=== PATIENT | male | born 1990 | race Caucasian/White ===

== ENCOUNTER 2016-12-27 17:50 | Inpatient (IN) | payer OTHER ==
[~2016-12-27] VITALS: Ht 177.8 cm; Wt 77.8 kg
[~2016-12-27 17:50] MED LIST: CHOL100027 PO; FLUO20CA35 PO; FLUO40CA8 PO; QUET150T PO
[2016-12-27] MEDS ORDERED: BUSP15TA70 PO (18:23)
[2016-12-27] MEDS ORDERED: FLUO40CA8 PO (18:23)
[2016-12-27 18:38] LABS: BASO % 0.2 %; BASO ABS # 0.03 K/uL (0-0.2); COMPLETE YES; EOS % 0.8 %; HEMATOCRIT 52.2 % (42-52); IG% 0.9 %; LYMPH % 11.4 %; LYMPH ABS # 1.44 K/uL (1.2-3.4); MEAN CELL VOLUME 83.9 fL (80-100); MEAN CORPUSCULAR HEMOGLOBIN 27.8 pg (25-34); MEAN CORPUSCULAR HGB CONC 33.1 g/dl (32-36); MEAN PLATELET VOLUME 9.6 fL (7.4-10.4); MONO % 7.3 %; NEUT % 79.4 %; PLATELET COUNT 241 K/uL (130-400); RED BLOOD COUNT 6.22 M/uL (4.7-6.1); WHITE BLOOD COUNT 12.68 K/uL (4.8-10.8)
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
[2016-12-27 18:52] LABS: URINE APPEARANCE CLEAR (CLEAR); URINE BILIRUBIN NEG (NEG); URINE COLOR DK YELLOW; URINE EPITHELIAL CELL AUTO 20-30 /lpf (0-5); URINE NITRITE NEG (NEG); URINE PH 6.5 (4.5-7.5); UROBILINOGEN NEG (NEG)
[2016-12-27 18:54] LABS: MANUAL MICROSCOPIC REQUIRED? NO; REVIEW REQ? NO
[2016-12-27 19:01] LABS: BUN/CREATININE RATIO 11.1 (10-20); CALCIUM 9.2 mg/dl (8.5-10.1); CREATININE 1.2 mg/dl (0.60-1.40); POTASSIUM 3.8 mmol/L (3.5-5.1)
[2016-12-27 19:11] LABS: THYROID STIMULATING HORMONE 1.04 uIu/ml (0.300-4.500)
[2016-12-27 19:31] LABS: BENZODIAZEPINE, URINE NEG (NEG); COCAINE,URINE NEG (NEG); PHENCYCLIDINE, URINE NEG (NEG)
[2016-12-27 20:10] VITALS: O2SAT 93
[2016-12-27] MEDS ORDERED: NURSING VERBAL MED ORDER ONE (20:30)
[2016-12-27 20:45] VITALS: BP 130/83; PULSE 78; TEMP 36.8; Ht 177.8 cm; Wt 77.8 kg
[2016-12-27] MEDS ORDERED: SODIUM CHLORIDE 0.65% NA SOLN 45 ML (OCEAN) PRN (21:45)
[2016-12-27] MEDS ORDERED: ALUMINUM/MAGNESIUM SUSP 30 ML UDC PO PRN (21:45)
[2016-12-27] MEDS ORDERED: BISMUTH SUBSALICYLATE PER ML OMNICELL CHARGE PO PRN (21:45)
[2016-12-27] MEDS ORDERED: hydrOXYzine HCL 25 MG TAB PO PRN ×2 (21:45)
[2016-12-27] MEDS ORDERED: ACETAMINOPHEN 325 MG TAB PO PRN (21:45)
[2016-12-27] MEDS ORDERED: MAGNESIUM HYDROXIDE SUSP 30 ML UDC PO PRN (21:45)
[2016-12-27] MEDS ORDERED: BusPIRone 15 MG TAB PO SCH (22:00)
[2016-12-27] MEDS ORDERED: FLUOXETINE HCL 20 MG CAP PO SCH (22:00)
[2016-12-28 06:45] VITALS: BP_SYST 105; BP_SYST 128; BP_DIAS 70; BP_DIAS 91; PULSE 79; PULSE 82; TEMP 36.5
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
[2016-12-28] MEDS ORDERED: BusPIRone 15 MG TAB PO ONE (13:02)
[2016-12-28] MEDS: BusPIRone 15 MG TAB PO SCH (21:09)
[2016-12-28] MEDS: ESCITALOPRAM OXALATE 10 MG TAB PO SCH (21:09)
[2016-12-29 06:47] VITALS: BP_SYST 120; BP_SYST 123; BP_DIAS 83; BP_DIAS 88; PULSE 75; PULSE 83; TEMP 36.4
[2016-12-29] MEDS: BusPIRone 15 MG TAB PO SCH ×3 (08:56→21:24)
--- NOTE | 2016-12-29 11:42 | Psychiatric Progress Notes ---
Progress Note Date of Service Dec 29, 2016. 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 Chief Complaint "about the same". Subjective Patient was seen & assessed interval progress reviewed with nursing. Patient continues to be suicidal with a plan to cut his throat if he were not in the hospital. He relates family communication problems and blames mom's depression as the most significant factor. Dad works as a supervisor type disk quality control at [employer] and is gone most of the time and when dad is at home he is "emotionally unavailable and detached." Occasionally dad will say to patient "what is your plan for your life" but otherwise a little interaction. Patient reports that therapist, Dayron Stallings, has suggested that patient "put himself out there" but patient admits that he hasn't attempted to become involved in anything. He does have a peg driver's license and will occasionally drive to [employer] if he needs something. He denies anxiety about these types of activities but becomes anxious in social situations. In November, patient and mother travelled to [place] for his cousin's college graduation. Patient did all the driving and did not feel anxious and relates that he "did okay" with family interactions. He has been persistently depressed since he was in elementary school because he was made fun of by his peers for his speech impediment and not being athletic. He spends his days at home lying in bed, playing video games for about 1 hour/ day. He drives himself to doctor and therapy appointments. He is willing to have a family meeting "depending on who moderates" the meeting. He says that during the family meeting with his mother during his second of three hospitalizations here in 2011 his mother's feelings were hurt and he was discharged right after the meeting. Mom and patient drove home in silence. Patient not interest in [facility] as he was uncomfortable there in the past and his sister goes there. Review of Systems negative Sleep Information Total Hours of Sleep: 7.25 Meal Information Percent of Breakfast Consumed: 100 Percent of Lunch Consumed: 100 Percent of Dinner Consumed: 100 Mental Status Exam During interview pt is: alert and oriented, cooperative Appearance: appropriately dressed, appropriately groomed, other (appears older than stated age, wearing glasses) Eye contact is: fair Motor behavior is: steady gait & station, psychomotor agitation (jiggling legs) Speech: other (slowed, monotone) Affect: depressed, anxious, constricted Mood is: depressed, anxious Thought process: goal directed Thought content: reality based without delusions Suicidal thought are: present, Plan: present, Intent: denied Homicidal thoughts are: denied Hallucinations: denies auditory, denies visual Cognition: memory grossly intact, attention grossly intact, language grossly intact Intelligence estimated to be: average Insight: impaired Judgement: impaired Impression 26-year-old single white male who lives with his parents in [place], has a history of severe recurrent depression, generalized anxiety disorder, and 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 He has remained severely depressed for years, has not been able to sustain employment or live independently since graduating from college 6 years ago, and has been resistant to recommendations for increased outpatient supports and structure, although he is following with a psychiatrist and therapist. He has had several trials of augmenting medications for mood, but has not tried any other SSRIs besides fluoxetine, and has never been on an SNRI. He would benefit from a trial of a different antidepressant to target mood and anxiety, increased support and structure at home, family meeting with parents, and a robust safety plan. He requires inpatient treatment due to the high risk for suicide. Patient continues to require inpatient treatment due to suicidal thoughts with plan and can not contract for safety outside the hospital. Plan (1) Severe recurrent major depression without psychotic features - Chronic severe depression with acute worsening of mood in the context of mother's depression and difficult relationships with family. Discussed options for medication, including a trial of a different augmenting agent, switching to a different SSRI, or a trial of an SNRI such as venlafaxine XR. As there is some concern that fluoxetine is causing tinnitus, he would like to try switching to a different antidepressant. We discussed a trial of escitalopram, reviewed the risks, benefits, and side effects, and provided the patient with and up to date handout about the medication. We will stop fluoxetine which will self taper given its long half-life, and start escitalopram 10 mg daily at bedtime tonight, titrating as tolerated. - We also discussed the importance of increasing his supports and structure at home, engaging in activities outside of the home, and working on his relationship with his parents. He will need a family meeting with them prior to discharge. - Diane with outpatient providers. He does not feel he needs case management or psych rehabilitation, but may need a higher level of care, he is not doing well with his current regimen. 12/29 - Continue Lexpro 10 mg no side effects reported. Prozac 80 mg was discontinued last dose 12/28. (2) Anxiety - Trial of escitalopram as above. - Continue buspirone 15 mg 3 times a day. Patient instructed on the importance of taking the medication throughout the day for best effect. - Work on behavioral techniques for managing anxiety. (3) Suicidal ideations - Every 15 minute checks for safety. - Encourage group attendance and participation. - Work on discharge safety plan. Involve parents. High risk for suicide due to race, single, sex, unemployed, poor supports, chronic depression/anxiety/ personality disorder, multiple previous suicide attempts and hospitalizations, history of a suicide attempt without telling anyone her seeking treatment, and chronic SI with a specific plan and acts of furtherance on multiple occasions. Would benefit from robust safety plan to include no access to weapons including knives, and involving parents and outpatient providers so all are aware of the plan. Discharge / Aftercare Planning Primary Care Physician: Name: Dr Escobar Psychiatrist: Name: Dr Marcelino Date of Appointment: Feb 10, 2017 Time of Appointment: 9:00am Therapist: Name: Dayron Stallings LPC Date of Appointment: Jan 03, 2017 Time of Appointment: 4:00pm Critical Care Nurse Practitioner: Name: None Visit Code E&M Code: 07760 Inventory Assets Strengths: Supportive family, has housing, has outpatient providers Risk Factors Assessment Male: Yes : Yes /single/: Yes Higher / Fall in social status: No Health problems: Yes Mental Health Diagnoses: Yes Substance use disorders: No Previous attempt: Yes Previous attempt; planned: Yes Previous attempt; didn't tell: Yes Family history of suicide: No Previous psychiatric stay: Yes Hopelessness: Yes Smoker: No Protective Factors Assessment Hindu beliefs: Yes : No Responsible for young children: No Employed: No Stable relationships: No Supportive family: Yes Good rapport with provider: No Data Vital Signs Last 24 Hrs: Date Time Temp Pulse Resp B/P (MAP) Pulse Ox O2 Delivery O2 Flow Rate FiO2 12/29/16 06:47 36.4 75 16 120/83 83 123/88 Meds Administered Last 24 Hrs: Current Inpatient Medications Medications (Trade) Dose Ordered Sig/Hector Route Start Time Stop Time Status Last Admin Dose Admin Acetaminophen (Tylenol Tab) 650 mg Q4H PRN PO 12/27/16 21:45 01/26/17 21:44 Al Hydroxide/Mg Hydroxide (Maalox Susp) 30 ml Q4H PRN PO 12/27/16 21:45 01/26/17 21:44 Bismuth Subsalicylate (Kaopectate Liqd) 15 ml DAILY PRN PO 12/27/16 21:45 01/26/17 21:44 Magnesium Hydroxide (Milk Of Magnesia Susp) 30 ml DAILY PRN PO 12/27/16 21:45 01/26/17 21:44 Sodium Chloride ([place] Nasal [place]) PRN PRN NA 12/27/16 21:45 01/26/17 21:44 Hydroxyzine HCl (Vistaril Tab) 50 mg HSZ PRN PO 12/27/16 21:45 01/26/17 21:44 Hydroxyzine HCl (Vistaril Tab) 25 mg Q4H PRN PO 12/27/16 21:45 01/26/17 21:44 Escitalopram Oxalate (Lexapro Tab) 10 mg HS PO 12/28/16 22:00 01/27/17 21:59 12/28/16 21:09 10 MG Buspirone HCl (BusPAR TAB) 15 mg TID PO 12/28/16 22:00 01/27/17 13:59 12/29/16 08:56 15 MG
[2016-12-29] MEDS: ESCITALOPRAM OXALATE 10 MG TAB PO SCH (21:24)
[2016-12-30 06:57] VITALS: BP_SYST 115; BP_SYST 126; BP_DIAS 75; BP_DIAS 89; PULSE 73; PULSE 81; TEMP 36.4
[2016-12-30] MEDS: BusPIRone 15 MG TAB PO SCH ×3 (08:48→21:12)
--- NOTE | 2016-12-30 16:34 | Psychiatric Progress Notes ---
Progress Note Date of Service Dec 30, 2016. 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 Chief Complaint "my mom will be getting therapy". Subjective Patient was seen & assessed interval progress reviewed with Treatment Team. Hasn't been very involved in group therapies. Declining any meeting with mother. Denies medication side effects. Relatively constricted affect and seemingly difficulty in sustaining conversation. Review of Systems Psych: denies symptoms other than stated above Constitutional: denied Cardiovascular: denied GI: denied Neurologic: denied Remainder of 10 body systems also reviewed and denied other than noted above. Sleep Information Total Hours of Sleep: 6.75 Meal Information Percent of Breakfast Consumed: 100 Percent of Lunch Consumed: 100 Percent of Dinner Consumed: 100 Mental Status Exam During interview pt is: alert and oriented, cooperative Appearance: appropriately dressed, appropriately groomed, other (appears older than stated age, wearing glasses) Eye contact is: fair Motor behavior is: steady gait & station Speech: other (limited prosody) Affect: depressed Mood is: depressed Thought process: goal directed Thought content: reality based without delusions Suicidal thought are: denied, Plan: denied, Intent: denied Homicidal thoughts are: denied Hallucinations: denies auditory, denies visual Cognition: memory grossly intact, attention grossly intact, language grossly intact Intelligence estimated to be: average Insight: impaired Judgement: impaired Impression 26-year-old single white male who lives with his parents in [place], has a history of severe recurrent depression, generalized anxiety disorder, and 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 He has remained severely depressed for years, has not been able to sustain employment or live independently since graduating from college 6 years ago, and has been resistant to recommendations for increased outpatient supports and structure, although he is following with a psychiatrist and therapist. He has had several trials of augmenting medications for mood, but has not tried any other SSRIs besides fluoxetine, and has never been on an SNRI. He would benefit from a trial of a different antidepressant to target mood and anxiety, increased support and structure at home, family meeting with parents, and a robust safety plan. He requires inpatient treatment due to the high risk for suicide. Patient continues to require inpatient treatment due to suicidal thoughts with plan and can not contract for safety outside the hospital. Continued Inpatient Care continues to require inpatient hospitalization for safety and monitoring. Plan (1) Severe recurrent major depression without psychotic features - Chronic severe depression with acute worsening of mood in the context of mother's depression and difficult relationships with family. Discussed options for medication, including a trial of a different augmenting agent, switching to a different SSRI, or a trial of an SNRI such as venlafaxine XR. As there is some concern that fluoxetine is causing tinnitus, he would like to try switching to a different antidepressant. We discussed a trial of escitalopram, reviewed the risks, benefits, and side effects, and provided the patient with and up to date handout about the medication. We will stop fluoxetine which will self taper given its long half-life, and start escitalopram 10 mg daily at bedtime tonight, titrating as tolerated. - We also discussed the importance of increasing his supports and structure at home, engaging in activities outside of the home, and working on his relationship with his parents. He will need a family meeting with them prior to discharge. - Diane with outpatient providers. He does not feel he needs case management or psych rehabilitation, but may need a higher level of care, he is not doing well with his current regimen. 12/29 - Continue Lexapro 10 mg no side effects reported. Prozac 80 mg was discontinued last dose 12/28. 12/30-- consider additional Lexapro titration tomorrow as only 2 doses so far. (2) Anxiety - Trial of escitalopram as above. - Continue buspirone 15 mg 3 times a day. Patient instructed on the importance of taking the medication throughout the day for best effect. - Work on behavioral techniques for managing anxiety. (3) Suicidal ideations - Every 15 minute checks for safety. - Encourage group attendance and participation. - Work on discharge safety plan. Involve parents. High risk for suicide due to race, single, sex, unemployed, poor supports, chronic depression/anxiety/ personality disorder, multiple previous suicide attempts and hospitalizations, history of a suicide attempt without telling anyone her seeking treatment, and chronic SI with a specific plan and acts of furtherance on multiple occasions. Would benefit from robust safety plan to include no access to weapons including knives, and involving parents and outpatient providers so all are aware of the plan. Discharge / Aftercare Planning Primary Care Physician: Name: Dr Escobar Psychiatrist: Name: Dr Marcelino Date of Appointment: Feb 10, 2017 Time of Appointment: 9:00am Therapist: Name: Dayron Stallings BHAVIN Date of Appointment: Jan 03, 2017 Time of Appointment: 4:00pm Sawmill Relief Worker: Name: None Visit Code E&M Code: 00039 Inventory Assets Strengths: Supportive family, has housing, has outpatient providers Risk Factors Assessment Male: Yes : Yes /single/: Yes Higher / Fall in social status: No Health problems: Yes Mental Health Diagnoses: Yes Substance use disorders: No Previous attempt: Yes Previous attempt; planned: Yes Previous attempt; didn't tell: Yes Family history of suicide: No Previous psychiatric stay: Yes Hopelessness: Yes Smoker: No Protective Factors Assessment Quaker beliefs: Yes : No Responsible for young children: No Employed: No Stable relationships: No Supportive family: Yes Good rapport with provider: No Data Vital Signs Last 24 Hrs: Date Time Temp Pulse Resp B/P (MAP) Pulse Ox O2 Delivery O2 Flow Rate FiO2 12/30/16 06:57 36.4 73 16 115/75 81 126/89 Meds Administered Last 24 Hrs: Meds Administered (Past 24Hrs) Medications (Trade) Dose Ordered Sig/Hector Route Start Time Stop Time Status Last Admin Dose Admin Escitalopram Oxalate (Lexapro Tab) 10 mg HS PO 12/28/16 22:00 01/27/17 21:59 12/29/16 21:24 10 MG Buspirone HCl (BusPAR TAB) 15 mg TID PO 12/28/16 22:00 01/27/17 13:59 12/30/16 14:03 15 MG
[2016-12-30] MEDS: ESCITALOPRAM OXALATE 10 MG TAB PO SCH (21:12)
[2016-12-31 07:02] VITALS: BP_SYST 117; BP_SYST 132; BP_DIAS 76; BP_DIAS 90; PULSE 86; PULSE 88; TEMP 36.4
[2016-12-31] MEDS: BusPIRone 15 MG TAB PO SCH ×3 (08:26→22:32)
--- NOTE | 2016-12-31 14:10 | Psychiatric Progress Notes ---
Progress Note Date of Service Dec 31, 2016. 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 Chief Complaint "Still feel depressed". Subjective Patient was seen & assessed interval progress reviewed with Treatment Team. Patient reports that he continues to feel depressed. Started on Lexapro and no significant side effects. Continues to feel suicidal if he were not in hospital along with plan to cut his throat. Continues to feel hopeless. Frequent wakening during night. Review of Systems Psych: denies symptoms other than stated above Constitutional: Frequent wakening. Restless sleep. Cardiovascular: denied GI: denied Neurologic: denied Remainder of 10 body systems also reviewed and denied other than noted above. Sleep Information Total Hours of Sleep: 7.25 Meal Information Percent of Breakfast Consumed: 100 Percent of Lunch Consumed: 100 Percent of Dinner Consumed: 100 Mental Status Exam During interview pt is: alert and oriented, cooperative Appearance: appropriately dressed, appropriately groomed, other (appears older than stated age, wearing glasses) Eye contact is: fair Motor behavior is: steady gait & station Speech: other (limited prosody) Affect: depressed Mood is: depressed Thought process: goal directed Thought content: reality based without delusions Suicidal thought are: denied, Plan: denied, Intent: denied Homicidal thoughts are: denied Hallucinations: denies auditory, denies visual Cognition: memory grossly intact, attention grossly intact, language grossly intact Intelligence estimated to be: average Insight: impaired Judgement: impaired Impression 26-year-old single white male who lives with his parents in [place], has a history of severe recurrent depression, generalized anxiety disorder, and 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 He has remained severely depressed for years, has not been able to sustain employment or live independently since graduating from college 6 years ago, and has been resistant to recommendations for increased outpatient supports and structure, although he is following with a psychiatrist and therapist. He has had several trials of augmenting medications for mood, but has not tried any other SSRIs besides fluoxetine, and has never been on an SNRI. He would benefit from a trial of a different antidepressant to target mood and anxiety, increased support and structure at home, family meeting with parents, and a robust safety plan. He requires inpatient treatment due to the high risk for suicide. Patient continues to require inpatient treatment due to suicidal thoughts with plan and can not contract for safety outside the hospital. Continued Inpatient Care continues to require inpatient hospitalization for safety and monitoring. Plan (1) Severe recurrent major depression without psychotic features - Chronic severe depression with acute worsening of mood in the context of mother's depression and difficult relationships with family. Discussed options for medication, including a trial of a different augmenting agent, switching to a different SSRI, or a trial of an SNRI such as venlafaxine XR. As there is some concern that fluoxetine is causing tinnitus, he would like to try switching to a different antidepressant. We discussed a trial of escitalopram, reviewed the risks, benefits, and side effects, and provided the patient with and up to date handout about the medication. We will stop fluoxetine which will self taper given its long half-life, and start escitalopram 10 mg daily at bedtime tonight, titrating as tolerated. - We also discussed the importance of increasing his supports and structure at home, engaging in activities outside of the home, and working on his relationship with his parents. He will need a family meeting with them prior to discharge. - Diane with outpatient providers. He does not feel he needs case management or psych rehabilitation, but may need a higher level of care, he is not doing well with his current regimen. 12/29 - Continue Lexapro 10 mg no side effects reported. Prozac 80 mg was discontinued last dose 12/28. 12/30-- consider additional Lexapro titration tomorrow as only 2 doses so far. 12/31 - Continues to feel depressed and no side effects from Lexapro. Patient agreeable to increasing dose to 20mg daily. (2) Anxiety - Trial of escitalopram as above. - Continue buspirone 15 mg 3 times a day. Patient instructed on the importance of taking the medication throughout the day for best effect. - Work on behavioral techniques for managing anxiety. (3) Suicidal ideations - Every 15 minute checks for safety. - Encourage group attendance and participation. - Work on discharge safety plan. Involve parents. High risk for suicide due to race, single, sex, unemployed, poor supports, chronic depression/anxiety/ personality disorder, multiple previous suicide attempts and hospitalizations, history of a suicide attempt without telling anyone her seeking treatment, and chronic SI with a specific plan and acts of furtherance on multiple occasions. Would benefit from robust safety plan to include no access to weapons including knives, and involving parents and outpatient providers so all are aware of the plan. Discharge / Aftercare Planning Primary Care Physician: Name: Dr Escobar Psychiatrist: Name: Dr Marcelino Date of Appointment: Feb 10, 2017 Time of Appointment: 9:00am Therapist: Name: Dayron Stallings LPC Date of Appointment: Jan 03, 2017 Time of Appointment: 4:00pm Line Erector Apprentice: Name: Al Visit Code E&M Code: 95860 Inventory Assets Strengths: Supportive family, has housing, has outpatient providers Risk Factors Assessment Male: Yes : Yes /single/: Yes Higher / Fall in social status: No Health problems: Yes Mental Health Diagnoses: Yes Substance use disorders: No Previous attempt: Yes Previous attempt; planned: Yes Previous attempt; didn't tell: Yes Family history of suicide: No Previous psychiatric stay: Yes Hopelessness: Yes Smoker: No Protective Factors Assessment Anabaptist beliefs: Yes : No Responsible for young children: No Employed: No Stable relationships: No Supportive family: Yes Good rapport with provider: No Data Vital Signs Last 24 Hrs: Date Time Temp Pulse Resp B/P (MAP) Pulse Ox O2 Delivery O2 Flow Rate FiO2 12/31/16 07:02 36.4 88 18 117/76 86 132/90
[2016-12-31] MEDS: ESCITALOPRAM OXALATE 20 MG TAB PO SCH (22:40)
[2017-01-01 06:54] VITALS: BP_SYST 120; BP_SYST 136; BP_DIAS 79; BP_DIAS 90; PULSE 70; PULSE 88; TEMP 36.3
[2017-01-01] MEDS: BusPIRone 15 MG TAB PO SCH ×3 (08:30→21:29)
--- NOTE | 2017-01-01 14:31 | Psychiatric Progress Notes ---
Progress Note Date of Service Jan 01, 2017. 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 Chief Complaint "Still depressed. Maybe slightly better". Subjective Patient was seen & assessed interval progress reviewed with Treatment Team. Patient reports continuing to feel depressed. Interacting more with peers and less isolating in his room. Sleeping 5 to 6 hours of light restless sleep. Tolerating medications well overall. Continues to feel hopeless and feels suicidal with plan to cut throat if he were not in the hospital. Review of Systems Psych: denies symptoms other than stated above Constitutional: Decreased sleep with 5 to 6 hours per night and feels tires. Appetite good. Cardiovascular: denied GI: denied Neurologic: denied Remainder of 10 body systems also reviewed and denied other than noted above. Sleep Information Total Hours of Sleep: 6.00 Meal Information Percent of Breakfast Consumed: 100 Percent of Lunch Consumed: 100 Percent of Dinner Consumed: 100 Mental Status Exam During interview pt is: alert and oriented, cooperative Appearance: appropriately dressed, appropriately groomed, other (appears older than stated age, wearing glasses) Eye contact is: fair Motor behavior is: steady gait & station Speech: other (limited prosody) Affect: depressed Mood is: depressed Thought process: goal directed Thought content: reality based without delusions Suicidal thought are: denied, Plan: denied, Intent: denied Homicidal thoughts are: denied Hallucinations: denies auditory, denies visual Cognition: memory grossly intact, attention grossly intact, language grossly intact Intelligence estimated to be: average Insight: impaired Judgement: impaired Impression 26-year-old single white male who lives with his parents in [place], has a history of severe recurrent depression, generalized anxiety disorder, and 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 He has remained severely depressed for years, has not been able to sustain employment or live independently since graduating from college 6 years ago, and has been resistant to recommendations for increased outpatient supports and structure, although he is following with a psychiatrist and therapist. He has had several trials of augmenting medications for mood, but has not tried any other SSRIs besides fluoxetine, and has never been on an SNRI. He would benefit from a trial of a different antidepressant to target mood and anxiety, increased support and structure at home, family meeting with parents, and a robust safety plan. He requires inpatient treatment due to the high risk for suicide. Patient continues to require inpatient treatment due to suicidal thoughts with plan and can not contract for safety outside the hospital. Continued Inpatient Care continues to require inpatient hospitalization for safety and monitoring. Plan (1) Severe recurrent major depression without psychotic features - Chronic severe depression with acute worsening of mood in the context of mother's depression and difficult relationships with family. Discussed options for medication, including a trial of a different augmenting agent, switching to a different SSRI, or a trial of an SNRI such as venlafaxine XR. As there is some concern that fluoxetine is causing tinnitus, he would like to try switching to a different antidepressant. We discussed a trial of escitalopram, reviewed the risks, benefits, and side effects, and provided the patient with and up to date handout about the medication. We will stop fluoxetine which will self taper given its long half-life, and start escitalopram 10 mg daily at bedtime tonight, titrating as tolerated. - We also discussed the importance of increasing his supports and structure at home, engaging in activities outside of the home, and working on his relationship with his parents. He will need a family meeting with them prior to discharge. - Diane with outpatient providers. He does not feel he needs case management or psych rehabilitation, but may need a higher level of care, he is not doing well with his current regimen. 12/29 - Continue Lexapro 10 mg no side effects reported. Prozac 80 mg was discontinued last dose 12/28. 12/30-- consider additional Lexapro titration tomorrow as only 2 doses so far. 12/31 - Continues to feel depressed and no side effects from Lexapro. Patient agreeable to increasing dose to 20mg daily. 01/01 - reviewed with patient augment strategy of adding Remeron but he had previously been on this and discontinued because he thought that it was contributing to Tinnitus and was ineffective (2) Anxiety - Trial of escitalopram as above. - Continue buspirone 15 mg 3 times a day. Patient instructed on the importance of taking the medication throughout the day for best effect. - Work on behavioral techniques for managing anxiety. 01/01 - Discussed consideration of adding Hydroxyzine PRN for anxiety but patient declines at this time and will consider option (3) Suicidal ideations - Every 15 minute checks for safety. - Encourage group attendance and participation. - Work on discharge safety plan. Involve parents. High risk for suicide due to race, single, sex, unemployed, poor supports, chronic depression/anxiety/ personality disorder, multiple previous suicide attempts and hospitalizations, history of a suicide attempt without telling anyone her seeking treatment, and chronic SI with a specific plan and acts of furtherance on multiple occasions. Would benefit from robust safety plan to include no access to weapons including knives, and involving parents and outpatient providers so all are aware of the plan. Discharge / Aftercare Planning Primary Care Physician: Name: Dr Escobar Psychiatrist: Name: Dr Marcelino Date of Appointment: Feb 10, 2017 Time of Appointment: 9:00am Therapist: Name: Dayron Stallings LPC Date of Appointment: Jan 03, 2017 Time of Appointment: 4:00pm Director Meetings: Name: None Visit Code E&M Code: 31646 Inventory Assets Strengths: Supportive family, has housing, has outpatient providers Risk Factors Assessment Male: Yes : Yes /single/: Yes Higher / Fall in social status: No Health problems: Yes Mental Health Diagnoses: Yes Substance use disorders: No Previous attempt: Yes Previous attempt; planned: Yes Previous attempt; didn't tell: Yes Family history of suicide: No Previous psychiatric stay: Yes Hopelessness: Yes Smoker: No Protective Factors Assessment Muslim beliefs: Yes : No Responsible for young children: No Employed: No Stable relationships: No Supportive family: Yes Good rapport with provider: No Data Vital Signs Last 24 Hrs: Date Time Temp Pulse Resp B/P (MAP) Pulse Ox O2 Delivery O2 Flow Rate FiO2 01/01/17 06:54 36.3 70 16 120/79 88 136/90 Meds Administered Last 24 Hrs: Meds Administered (Past 24Hrs) Medications (Trade) Dose Ordered Sig/Hector Route Start Time Stop Time Status Last Admin Dose Admin Escitalopram Oxalate (Lexapro Tab) 20 mg HS PO 12/31/16 22:00 01/30/17 21:59 12/31/16 22:40 20 MG
[2017-01-01] MEDS: ESCITALOPRAM OXALATE 20 MG TAB PO SCH (21:29)
[2017-01-02 07:01] VITALS: BP_SYST 117; BP_SYST 124; BP_DIAS 75; BP_DIAS 86; PULSE 73; PULSE 81; TEMP 36.3
[2017-01-02] MEDS: BusPIRone 15 MG TAB PO SCH ×3 (08:32→21:43)
--- NOTE | 2017-01-02 12:18 | Psychiatric Progress Notes ---
Progress Note Date of Service Jan 02, 2017. 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 Chief Complaint "Fine". Subjective Patient was seen & assessed interval progress reviewed with Treatment Team. Staff report the patient has been attending groups, eating 100% of meals, interacting more with peers, and affect appears brighter. He refused to rates his mood during community meeting, and stated he felt "numb." Today he states that there has been no change in his mood since admission, and describes it as "just there, none." He reports ongoing suicidal thoughts which she describes as "just the normal ones, not wanting to be alive, the same plan, life's not worth living, no hope, might as well just kill myself." He continues to think about "going out into the pate, take a knife to my throat," saying he possibly act on it if he were not in the hospital, but probably not until after his cousin's wedding in January, as he is looking forward to it. When asked about goals for his treatment here, he shrugs his shoulders, and also struggles to describe what he has been working on here or what he would like to address during his hospitalization. He says he is willing to reconsider a family meeting, and we reviewed goals of addressing his safety plan with parents. He answers "fine" to most questions, including about sleep and appetite. He remains unwilling to consider making changes to his schedule and structure at home. Sleep Information Total Hours of Sleep: 6.50 Meal Information Percent of Breakfast Consumed: 100 Percent of Lunch Consumed: 100 Percent of Dinner Consumed: 100 Mental Status Exam During interview pt is: alert and oriented, cooperative, other (lying back on his bed with hands behind his head) Appearance: appropriately dressed, appropriately groomed, other (appears older than stated age, wearing glasses, unshaven) Eye contact is: fair Motor behavior is: steady gait & station Speech: other (limited prosody) Affect: flat Mood is: other ("just there, none") Thought process: goal directed, concrete Thought content: reality based without delusions Suicidal thought are: present, Plan: present, Intent: denied (states he would probably wait until next month to commit suicide, as there is a wedding he wants to attend) Homicidal thoughts are: denied Hallucinations: denies auditory, denies visual Cognition: memory grossly intact, attention grossly intact, language grossly intact Intelligence estimated to be: average Insight: impaired Judgement: impaired Impression 26-year-old single white male who lives with his parents in [place], has a history of severe recurrent depression, generalized anxiety disorder, and 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 He has remained severely depressed for years, has not been able to sustain employment or live independently since graduating from college 6 years ago, and has been resistant to recommendations for increased outpatient supports and structure, although he is following with a psychiatrist and therapist. He has had several trials of augmenting medications for mood, but has not tried any other SSRIs besides fluoxetine, and has never been on an SNRI. He would benefit from a trial of a different antidepressant to target mood and anxiety, increased support and structure at home, family meeting with parents, and a robust safety plan. He requires inpatient treatment due to the high risk for suicide. Continued Inpatient Care continues to require inpatient hospitalization for safety and monitoring. Plan (1) Severe recurrent major depression without psychotic features - Chronic severe depression with acute worsening of mood in the context of mother's depression and difficult relationships with family. Discussed options for medication, including a trial of a different augmenting agent, switching to a different SSRI, or a trial of an SNRI such as venlafaxine XR. As there is some concern that fluoxetine is causing tinnitus, he would like to try switching to a different antidepressant. We discussed a trial of escitalopram, reviewed the risks, benefits, and side effects, and provided the patient with and up to date handout about the medication. We will stop fluoxetine which will self taper given its long half-life, and start escitalopram 10 mg daily at bedtime tonight, titrating as tolerated. - We also discussed the importance of increasing his supports and structure at home, engaging in activities outside of the home, and working on his relationship with his parents. He will need a family meeting with them prior to discharge. - Coordinate with outpatient providers. He does not feel he needs case management or psych rehabilitation, but may need a higher level of care, he is not doing well with his current regimen. 12/29 - Continue Lexapro 10 mg no side effects reported. Prozac 80 mg was discontinued last dose 12/28. 12/30 - consider additional Lexapro titration tomorrow as only 2 doses so far. 12/31 - Continues to feel depressed and no side effects from Lexapro. Patient agreeable to increasing dose to 20mg daily. 01/01 - reviewed with patient augment strategy of adding Remeron but he had previously been on this and discontinued because he thought that it was contributing to tinnitus and was ineffective. 01/02 - schedule family meeting with parents. Need to review safety plan, including no access to knives, guns, or other weapons. Would also reviewed recommendations to increase his outpatient supports/treatment, which she has thus far declined. Spoke with Dr. Marcelino regarding patient's case, and he was in support of current med plan, consideration of ECT and recommendations for increased OP supports. Also agreed with axis II component. (2) Anxiety - Trial of escitalopram as above. - Continue buspirone 15 mg 3 times a day. Patient instructed on the importance of taking the medication throughout the day for best effect. - Work on behavioral techniques for managing anxiety. 01/01 - Discussed consideration of adding hydroxyzine PRN for anxiety but patient declines at this time. (3) Suicidal ideations - Every 15 minute checks for safety. - Encourage group attendance and participation. - Work on discharge safety plan. Involve parents. High risk for suicide due to race, single, sex, unemployed, poor supports, chronic depression/anxiety/ personality disorder, multiple previous suicide attempts and hospitalizations, history of a suicide attempt without telling anyone her seeking treatment, and chronic SI with a specific plan and acts of furtherance on multiple occasions. Would benefit from robust safety plan to include no access to weapons including knives, and involving parents and outpatient providers so all are aware of the plan. Discharge / Aftercare Planning Primary Care Physician: Name: Dr Escobar Psychiatrist: Name: Dr Marcelino Date of Appointment: Feb 10, 2017 Time of Appointment: 9:00am Therapist: Name: Dayron Stallings LPC Date of Appointment: Jan 03, 2017 Time of Appointment: 4:00pm Stock Taker: Name: None Visit Code E&M Code: 34608 Inventory Assets Strengths: Supportive family, has housing, has outpatient providers Risk Factors Assessment Male: Yes : Yes /single/: Yes Higher / Fall in social status: No Health problems: Yes Mental Health Diagnoses: Yes Substance use disorders: No Previous attempt: Yes Previous attempt; planned: Yes Previous attempt; didn't tell: Yes Family history of suicide: No Previous psychiatric stay: Yes Hopelessness: Yes Smoker: No Protective Factors Assessment Druze beliefs: Yes : No Responsible for young children: No Employed: No Stable relationships: No Supportive family: Yes Good rapport with provider: No Data Vital Signs Last 24 Hrs: Date Time Temp Pulse Resp B/P (MAP) Pulse Ox O2 Delivery O2 Flow Rate FiO2 01/02/17 07:01 36.3 73 16 117/75 81 124/86 Meds Administered Last 24 Hrs: Meds Administered (Past 24Hrs) Medications (Trade) Dose Ordered Sig/Hector Route Start Time Stop Time Status Last Admin Dose Admin Escitalopram Oxalate (Lexapro Tab) 20 mg HS PO 12/31/16 22:00 01/30/17 21:59 01/01/17 21:29 20 MG
[2017-01-02] MEDS: ESCITALOPRAM OXALATE 20 MG TAB PO SCH (21:43)
[2017-01-03 06:54] VITALS: BP_SYST 117; BP_SYST 132; BP_DIAS 75; BP_DIAS 90; PULSE 75; PULSE 80; TEMP 36.3
[2017-01-03] MEDS: BusPIRone 15 MG TAB PO SCH ×3 (08:41→23:00)
--- NOTE | 2017-01-03 12:28 | Psychiatric Progress Notes ---
Progress Note Date of Service Jan 03, 2017. 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 Chief Complaint "about the same". Subjective Patient was seen & assessed interval progress reviewed with nursing. Patient attends groups but otherwise isolates in room and lies in bed. He reports no side effects from Lexapro which was increased to 20 mg on 12/31. He feels like nothing will get better. When asked how he would like his life to be if it were better and her replied "if I had friends." Patient terrified of public humiliation and being "mocked." He says that it is "really hard" for him to initiate anything. Discussed behavioral activation and doing things such as volunteering, exercising, going places even when you don't feel like it. Patient said he is looking forward to cousin's wedding "because it is something to do." He agrees to have a family meeting with parents but expresses hopelessness that anything will change. He continues to describe his mood as depressed and endorses suicidal thoughts with intention or harm himself with a knife if he were not in the hospital. Patient endorses increased anxiety due to being around more people here in the hospital. He is not overly anxious at home. He denies symptoms consistent with agarophobia but says his biggest fear is rejection, failure. Patient does express willingness to do volunteer work. Review of Systems Psych: see HPI Neuro: denies symptoms CV: denies symptoms GI: denies symptoms Sleep Information Total Hours of Sleep: 8.25 Meal Information Percent of Breakfast Consumed: 100 Percent of Lunch Consumed: 100 Percent of Dinner Consumed: 100 Mental Status Exam During interview pt is: alert and oriented, cooperative, other (seated in chair with hands folded. ) Appearance: appropriately dressed, appropriately groomed, other (appears older than stated age, wearing glasses) Eye contact is: fair Motor behavior is: steady gait & station Speech: other (limited prosody) Affect: depressed, flat Mood is: other ("just there, none") Thought process: goal directed, concrete Thought content: cognitive distortions Suicidal thought are: present, Plan: present, Intent: denied (states he would probably wait until next month to commit suicide, as there is a wedding he wants to attend) Homicidal thoughts are: denied Hallucinations: denies auditory, denies visual Cognition: memory grossly intact, attention grossly intact, language grossly intact Intelligence estimated to be: average Insight: impaired Judgement: impaired Impression 26-year-old single white male who lives with his parents in [place], has a history of severe recurrent depression, generalized anxiety disorder, and 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 He has remained severely depressed for years, has not been able to sustain employment or live independently since graduating from college 6 years ago, and has been resistant to recommendations for increased outpatient supports and structure, although he is following with a psychiatrist and therapist. He has had several trials of augmenting medications for mood, but has not tried any other SSRIs besides fluoxetine, and has never been on an SNRI. He would benefit from a trial of a different antidepressant to target mood and anxiety, increased support and structure at home, family meeting with parents, and a robust safety plan. He requires inpatient treatment due to the high risk for suicide. Continued Inpatient Care continues to require inpatient hospitalization for safety and monitoring. Plan (1) Severe recurrent major depression without psychotic features - Chronic severe depression with acute worsening of mood in the context of mother's depression and difficult relationships with family. Discussed options for medication, including a trial of a different augmenting agent, switching to a different SSRI, or a trial of an SNRI such as venlafaxine XR. As there is some concern that fluoxetine is causing tinnitus, he would like to try switching to a different antidepressant. We discussed a trial of escitalopram, reviewed the risks, benefits, and side effects, and provided the patient with and up to date handout about the medication. We will stop fluoxetine which will self taper given its long half-life, and start escitalopram 10 mg daily at bedtime tonight, titrating as tolerated. - We also discussed the importance of increasing his supports and structure at home, engaging in activities outside of the home, and working on his relationship with his parents. He will need a family meeting with them prior to discharge. - Coordinate with outpatient providers. He does not feel he needs case management or psych rehabilitation, but may need a higher level of care, he is not doing well with his current regimen. 12/29 - Continue Lexapro 10 mg no side effects reported. Prozac 80 mg was discontinued last dose 12/28. 12/30 - consider additional Lexapro titration tomorrow as only 2 doses so far. 12/31 - Continues to feel depressed and no side effects from Lexapro. Patient agreeable to increasing dose to 20mg daily. 01/01 - reviewed with patient augment strategy of adding Remeron but he had previously been on this and discontinued because he thought that it was contributing to tinnitus and was ineffective. 01/02 - schedule family meeting with parents. Need to review safety plan, including no access to knives, guns, or other weapons. Would also reviewed recommendations to increase his outpatient supports/treatment, which she has thus far declined. Spoke with Dr. Marcelino regarding patient's case, and he was in support of current med plan, consideration of ECT and recommendations for increased OP supports. Also agreed with axis II component. 01/03 - continue Lexapro 20 mg (has been at this dose for 3 days). Discussed ways to engage socially as patient sees having friends the thing that would make his life better. He is willing to look at volunteer opportunities. He agreed to family meeting with parents during which a review of safety plan will be done as above. Patient scheduled for therapy today at 4 pm with Dayron Stallings. Patient agreed to call and cancel. (2) Anxiety - Trial of escitalopram as above. - Continue buspirone 15 mg 3 times a day. Patient instructed on the importance of taking the medication throughout the day for best effect. - Work on behavioral techniques for managing anxiety. 01/01 - Discussed consideration of adding hydroxyzine PRN for anxiety but patient declines at this time. 01/03 - discussed using hydroxyzine prn for reported anxiety and for difficulty falling asleep. He will consider. (3) Suicidal ideations - Every 15 minute checks for safety. - Encourage group attendance and participation. - Work on discharge safety plan. Involve parents. High risk for suicide due to race, single, sex, unemployed, poor supports, chronic depression/anxiety/ personality disorder, multiple previous suicide attempts and hospitalizations, history of a suicide attempt without telling anyone her seeking treatment, and chronic SI with a specific plan and acts of furtherance on multiple occasions. Would benefit from robust safety plan to include no access to weapons including knives, and involving parents and outpatient providers so all are aware of the plan. Discharge / Aftercare Planning Primary Care Physician: Name: Dr Escobar Psychiatrist: Name: Dr Marcelino Date of Appointment: Feb 10, 2017 Time of Appointment: 9:00am Therapist: Name: Dayron Stallings LPC Date of Appointment: Jan 03, 2017 Time of Appointment: 4:00pm Diffusion Furnace Operator: Name: None Visit Code E&M Code: 89667 Inventory Assets Strengths: Supportive family, has housing, has outpatient providers Risk Factors Assessment Male: Yes : Yes /single/: Yes Higher / Fall in social status: No Health problems: Yes Mental Health Diagnoses: Yes Substance use disorders: No Previous attempt: Yes Previous attempt; planned: Yes Previous attempt; didn't tell: Yes Family history of suicide: No Previous psychiatric stay: Yes Hopelessness: Yes Smoker: No Protective Factors Assessment Congregational beliefs: Yes : No Responsible for young children: No Employed: No Stable relationships: No Supportive family: Yes Good rapport with provider: No Data Vital Signs Last 24 Hrs: Date Time Temp Pulse Resp B/P (MAP) Pulse Ox O2 Delivery O2 Flow Rate FiO2 01/03/17 06:54 36.3 75 16 117/75 80 132/90 Meds Administered Last 24 Hrs: Current Inpatient Medications Medications (Trade) Dose Ordered Sig/Hector Route Start Time Stop Time Status Last Admin Dose Admin Acetaminophen (Tylenol Tab) 650 mg Q4H PRN PO 12/27/16 21:45 01/26/17 21:44 Al Hydroxide/Mg Hydroxide (Maalox Susp) 30 ml Q4H PRN PO 12/27/16 21:45 01/26/17 21:44 Bismuth Subsalicylate (Kaopectate Liqd) 15 ml DAILY PRN PO 12/27/16 21:45 01/26/17 21:44 Magnesium Hydroxide (Milk Of Magnesia Susp) 30 ml DAILY PRN PO 12/27/16 21:45 01/26/17 21:44 Sodium Chloride ([place] Nasal [place]) PRN PRN NA 12/27/16 21:45 7/6/17 21:44 Hydroxyzine HCl (Vistaril Tab) 50 mg HSZ PRN PO 12/27/16 21:45 01/26/17 21:44 Hydroxyzine HCl (Vistaril Tab) 25 mg Q4H PRN PO 12/27/16 21:45 01/26/17 21:44 Buspirone HCl (BusPAR TAB) 15 mg TID PO 12/28/16 22:00 01/27/17 13:59 01/03/17 08:41 15 MG Escitalopram Oxalate (Lexapro Tab) 20 mg HS PO 12/31/16 22:00 01/30/17 21:59 01/02/17 21:43 20 MG
[2017-01-03] MEDS: ESCITALOPRAM OXALATE 20 MG TAB PO SCH (23:00)
[2017-01-04 07:05] VITALS: BP_SYST 118; BP_SYST 126; BP_DIAS 79; BP_DIAS 85; PULSE 65; PULSE 77; TEMP 36.4
[2017-01-04] MEDS: BusPIRone 15 MG TAB PO SCH ×3 (08:32→21:27)
--- NOTE | 2017-01-04 11:39 | Psychiatric Progress Notes ---
Progress Note Date of Service Jan 04, 2017. 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 Chief Complaint "fine". Subjective Patient was seen & assessed interval progress reviewed with Treatment Team. Patient is participating in unit programming. His mother was in for a visit last evening which patient reports was "fine." States they didn't really get into anything. He continued to describe his mood as numb yesterday to staff. Today is says it is "the same." He reports daily suicidal thoughts for the past 5 years. He has acted on these thoughts twice, once before an inpatient stay in 2011 and after the May election when he was unhappy with the results. He continues to agree to a family meeting and reviewing home safety plan. Says that he would not do anything to harm himself until after his cousin's wedding in [place] on January 28 as he enjoys getting together with family and then says after that he would wait "to do anything until after the [facility]" which is in mid February. His extended family camps at [facility] yearly. He continues to be willing to consider doing volunteer work as a way to have social interaction. He again expressed his concern about being discharged immediately after a family meeting. No medication side effects. Denies significant anxiety today other than some anxiety about family meeting. Review of Systems Denies psychiatric symptoms other than stated above. Sleep Information Total Hours of Sleep: 6.50 Meal Information Percent of Breakfast Consumed: 100 Percent of Lunch Consumed: 100 Percent of Dinner Consumed: 100 Mental Status Exam During interview pt is: alert and oriented, cooperative, other (seated in chair with hands folded. ) Appearance: appropriately dressed, appropriately groomed, other (appears older than stated age, wearing glasses) Eye contact is: fair Motor behavior is: steady gait & station Speech: other (limited prosody) Affect: depressed, flat (althought slightly brighter) Mood is: other ('the same.") Thought process: goal directed, concrete Thought content: cognitive distortions Suicidal thought are: present, Plan: denied, Intent: denied (states he would probably wait until next month to commit suicide, as there is a wedding he wants to attend) Homicidal thoughts are: denied Hallucinations: denies auditory, denies visual Cognition: memory grossly intact, attention grossly intact, language grossly intact Intelligence estimated to be: average Insight: impaired Judgement: impaired Impression 26-year-old single white male who lives with his parents in [place], has a history of severe recurrent depression, generalized anxiety disorder, and 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 He has remained severely depressed for years, has not been able to sustain employment or live independently since graduating from college 6 years ago, and has been resistant to recommendations for increased outpatient supports and structure, although he is following with a psychiatrist and therapist. He has had several trials of augmenting medications for mood, but has not tried any other SSRIs besides fluoxetine, and has never been on an SNRI. He would benefit from a trial of a different antidepressant to target mood and anxiety, increased support and structure at home, family meeting with parents, and a robust safety plan. He requires inpatient treatment due to the high risk for suicide. Continued Inpatient Care continues to require inpatient hospitalization for safety and monitoring. Plan (1) Severe recurrent major depression without psychotic features - Chronic severe depression with acute worsening of mood in the context of mother's depression and difficult relationships with family. Discussed options for medication, including a trial of a different augmenting agent, switching to a different SSRI, or a trial of an SNRI such as venlafaxine XR. As there is some concern that fluoxetine is causing tinnitus, he would like to try switching to a different antidepressant. We discussed a trial of escitalopram, reviewed the risks, benefits, and side effects, and provided the patient with and up to date handout about the medication. We will stop fluoxetine which will self taper given its long half-life, and start escitalopram 10 mg daily at bedtime tonight, titrating as tolerated. - We also discussed the importance of increasing his supports and structure at home, engaging in activities outside of the home, and working on his relationship with his parents. He will need a family meeting with them prior to discharge. - Coordinate with outpatient providers. He does not feel he needs case management or psych rehabilitation, but may need a higher level of care, he is not doing well with his current regimen. 12/29 - Continue Lexapro 10 mg no side effects reported. Prozac 80 mg was discontinued last dose 12/28. 12/30 - consider additional Lexapro titration tomorrow as only 2 doses so far. 12/31 - Continues to feel depressed and no side effects from Lexapro. Patient agreeable to increasing dose to 20mg daily. 01/01 - reviewed with patient augment strategy of adding Remeron but he had previously been on this and discontinued because he thought that it was contributing to tinnitus and was ineffective. 01/02 - schedule family meeting with parents. Need to review safety plan, including no access to knives, guns, or other weapons. Would also reviewed recommendations to increase his outpatient supports/treatment, which she has thus far declined. Spoke with Dr. Marcelino regarding patient's case, and he was in support of current med plan, consideration of ECT and recommendations for increased OP supports. Also agreed with axis II component. 01/03 - continue Lexapro 20 mg (has been at this dose for 3 days). Discussed ways to engage socially as patient sees having friends the thing that would make his life better. He is willing to look at volunteer opportunities. He agreed to family meeting with parents during which a review of safety plan will be done as above. Patient scheduled for therapy today at 4 pm with Dayron Stallings. Patient agreed to call and cancel. 01/04 - placed phone call to patient's therapist Dayron Stallings and left voicemail for return call to discuss case and coordinate care. -please help patient explore volunteer opportunities in the community. - Patient needs a family meeting as soon as possible. Recommend that he not be immediately discharged after meeting due to his perseveration on difficulties communicating with mom when this happened before. - will need to verifiy when next therapy appointment is scheduled. (2) Anxiety - Trial of escitalopram as above. - Continue buspirone 15 mg 3 times a day. Patient instructed on the importance of taking the medication throughout the day for best effect. - Work on behavioral techniques for managing anxiety. 01/01 - Discussed consideration of adding hydroxyzine PRN for anxiety but patient declines at this time. 01/03 - discussed using hydroxyzine prn for reported anxiety and for difficulty falling asleep. He will consider. (3) Suicidal ideations - Every 15 minute checks for safety. - Encourage group attendance and participation. - Work on discharge safety plan. Involve parents. High risk for suicide due to race, single, sex, unemployed, poor supports, chronic depression/anxiety/ personality disorder, multiple previous suicide attempts and hospitalizations, history of a suicide attempt without telling anyone her seeking treatment, and chronic SI with a specific plan and acts of furtherance on multiple occasions. Would benefit from robust safety plan to include no access to weapons including knives, and involving parents and outpatient providers so all are aware of the plan. 01/04 Patient has agreed to family meeting with parents which has not yet been set up. This will need to be done before patient is discharged. Ideally he would not be discharged immediately after a family meeting as patient has repeatedly talked about how badly this went after a previous inpatient stay. Discharge / Aftercare Planning Primary Care Physician: Name: Dr Escobar Psychiatrist: Name: Dr Marcelino Date of Appointment: Feb 10, 2017 Time of Appointment: 9:00am Therapist: Name: Dayron Stallings LPC Date of Appointment: Jan 03, 2017 Time of Appointment: 4:00pm Seat Joiner Chainstitch: Name: None Visit Code E&M Code: 87705 Inventory Assets Strengths: Supportive family, has housing, has outpatient providers Risk Factors Assessment Male: Yes : Yes /single/: Yes Higher / Fall in social status: No Health problems: Yes Mental Health Diagnoses: Yes Substance use disorders: No Previous attempt: Yes Previous attempt; planned: Yes Previous attempt; didn't tell: Yes Family history of suicide: No Previous psychiatric stay: Yes Hopelessness: Yes Smoker: No Protective Factors Assessment Anabaptism beliefs: Yes : No Responsible for young children: No Employed: No Stable relationships: No Supportive family: Yes Good rapport with provider: No Data Vital Signs Last 24 Hrs: Date Time Temp Pulse Resp B/P (MAP) Pulse Ox O2 Delivery O2 Flow Rate FiO2 01/04/17 07:05 36.4 65 16 118/79 77 126/85 Meds Administered Last 24 Hrs: Current Inpatient Medications Medications (Trade) Dose Ordered Sig/Hector Route Start Time Stop Time Status Last Admin Dose Admin Acetaminophen (Tylenol Tab) 650 mg Q4H PRN PO 12/27/16 21:45 7/6/17 21:44 Al Hydroxide/Mg Hydroxide (Maalox Susp) 30 ml Q4H PRN PO 12/27/16 21:45 01/26/17 21:44 Bismuth Subsalicylate (Kaopectate Liqd) 15 ml DAILY PRN PO 12/27/16 21:45 01/26/17 21:44 Magnesium Hydroxide (Milk Of Magnesia Susp) 30 ml DAILY PRN PO 12/27/16 21:45 01/26/17 21:44 Sodium Chloride ([place] Nasal [place]) PRN PRN NA 12/27/16 21:45 01/26/17 21:44 Hydroxyzine HCl (Vistaril Tab) 50 mg HSZ PRN PO 12/27/16 21:45 01/26/17 21:44 01/03/17 23:02 50 MG Hydroxyzine HCl (Vistaril Tab) 25 mg Q4H PRN PO 12/27/16 21:45 01/26/17 21:44 Buspirone HCl (BusPAR TAB) 15 mg TID PO 12/28/16 22:00 01/27/17 13:59 01/04/17 08:32 15 MG Escitalopram Oxalate (Lexapro Tab) 20 mg HS PO 12/31/16 22:00 01/30/17 21:59 01/03/17 23:00 20 MG
--- NOTE | 2017-01-04 13:35 | Psychiatric Progress Notes ---
Psychiatric Progress Note Date of Service Jan 04, 2017. Notes January 04, 2017 at 1307 spoke with therapist Dayron Stallings who sees patient weekly and was the person who called [facility] before admission. Has tried many types of therapy. Juan Jose never misses appointments. Patient has daily suicidal ideation without plan at baseline and will tell therapist things he is looking forward to- much like he is doing here. Therapist describes patient as very rigid thinker. Patient will complete partial assignments given by therapist but does not complete or take the next step and avoids anything at which he could potentially fail. Therapist would like us to have patient commit to having a session with his mother after he is discharged. He is willing to see Juan Jose on MondayJanuary 06 at 3 pm if he is discharged by then and would like to have patient and mother come in for session together during patient regularly scheduled therapy session on Monday.
[2017-01-04] MEDS: ESCITALOPRAM OXALATE 20 MG TAB PO SCH (21:28)
[2017-01-05 07:00] VITALS: BP_SYST 115; BP_SYST 122; BP_DIAS 76; BP_DIAS 83; PULSE 73; PULSE 80; TEMP 36.3
--- NOTE | 2017-01-05 08:25 | Psychiatric Progress Notes ---
Progress Note Date of Service Jan 05, 2017. 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 Chief Complaint "Not real good". Subjective Patient was seen & assessed interval progress reviewed with nursing. Staff report he remains depressed with restricted affect, reports feeling "numb," and states mood has not improved. He did agree to a meeting with his parents, but maintained that it will not be helpful, because he had one in the past and it was not helpful. His therapist was contacted yesterday and provided collateral information (see note from yesterday). He had a family meeting with his parents this morning, which was difficult. They discussed ongoing problems at home, including his parents' own issues, and the patient's reluctance to engage or follow through on recommendations. He struggled to identify his goals for the future, eventually stating that he would like to be able to live independently, but was unable to formulate any kind of plan to work towards that. They were informed of the recommendations for family therapy. On my assessment, the patient has returned to bed after his family meeting, stating he is too overwhelmed and upset to go to groups. He states his suicidal thoughts are "higher after the meeting, which just never get better, life in general. I'd be better off ." He endorses suicidal thoughts with a plan to go into the pate and cut his neck with a knife, and states that he feels safe in the hospital, but is not sure if he hurt himself if he were discharged today. He does not feel ready to leave the hospital today, stating that he is too upset after his meeting. He continues to be unwilling to accept recommendations for increased outpatient structure and supports. We again reviewed recommendations for family therapy, and he says that this was recommended last time he was hospitalized here, but "no one ever did anything about it," which he says means his parents never . Sleep Information Total Hours of Sleep: 6.50 Meal Information Percent of Breakfast Consumed: 100 Percent of Lunch Consumed: 100 Percent of Dinner Consumed: 100 Mental Status Exam During interview pt is: alert and oriented, cooperative (partially), other ( lying in bed facing the wall) Appearance: appropriately dressed, appropriately groomed, other (appears older than stated age, wearing glasses) Eye contact is: poor (avoids eye contact) Motor behavior is: steady gait & station Speech: other (minimal) Affect: depressed, anxious, constricted Mood is: other ("worse after the meeting") Thought process: goal directed, concrete Thought content: cognitive distortions Suicidal thought are: present, Plan: present, Intent: denied (denies intent to harm himself in the hospital, but states he does not feel he could be safe outside of the hospital) Homicidal thoughts are: denied Hallucinations: denies auditory, denies visual Cognition: memory grossly intact, attention grossly intact, language grossly intact Intelligence estimated to be: average Insight: impaired Judgement: impaired Impression 26-year-old single white male who lives with his parents in [place], has a history of severe recurrent depression, generalized anxiety disorder, and 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 He has remained severely depressed for years, has not been able to sustain employment or live independently since graduating from college 6 years ago, and has been resistant to recommendations for increased outpatient supports and structure, although he is following with a psychiatrist and therapist. He has had several trials of augmenting medications for mood, but has not tried any other SSRIs besides fluoxetine, and has never been on an SNRI. He has been switched to a different antidepressant to target mood and anxiety, we are reviewing recommendations to increase outpatient supports and structure at home, he had a family meeting with his parents today which was difficult, and he is working on a robust safety plan. He requires inpatient treatment due to the high risk for suicide. Continued Inpatient Care continues to require inpatient hospitalization for safety and monitoring. Plan (1) Severe recurrent major depression without psychotic features - Chronic severe depression with acute worsening of mood in the context of mother's depression and difficult relationships with family. Discussed options for medication, including a trial of a different augmenting agent, switching to a different SSRI, or a trial of an SNRI such as venlafaxine XR. As there is some concern that fluoxetine is causing tinnitus, he would like to try switching to a different antidepressant. We discussed a trial of escitalopram, reviewed the risks, benefits, and side effects, and provided the patient with and up to date handout about the medication. We will stop fluoxetine which will self taper given its long half-life, and start escitalopram 10 mg daily at bedtime tonight, titrating as tolerated. - We also discussed the importance of increasing his supports and structure at home, engaging in activities outside of the home, and working on his relationship with his parents. He will need a family meeting with them prior to discharge. - Coordinate with outpatient providers. He does not feel he needs case management or psych rehabilitation, but may need a higher level of care, he is not doing well with his current regimen. 12/29 - Continue Lexapro 10 mg no side effects reported. Prozac 80 mg was discontinued last dose 12/28. 12/30 - consider additional Lexapro titration tomorrow as only 2 doses so far. 12/31 - Continues to feel depressed and no side effects from Lexapro. Patient agreeable to increasing dose to 20mg daily. 01/01 - reviewed with patient augment strategy of adding Remeron but he had previously been on this and discontinued because he thought that it was contributing to tinnitus and was ineffective. 01/02 - schedule family meeting with parents. Need to review safety plan, including no access to knives, guns, or other weapons. Would also reviewed recommendations to increase his outpatient supports/treatment, which she has thus far declined. Spoke with Dr. Marcelino regarding patient's case, and he was in support of current med plan, consideration of ECT and recommendations for increased OP supports. Also agreed with axis II component. 01/03 - continue Lexapro 20 mg (has been at this dose for 3 days). Discussed ways to engage socially as patient sees having friends the thing that would make his life better. He is willing to look at volunteer opportunities. He agreed to family meeting with parents during which a review of safety plan will be done as above. Patient scheduled for therapy today at 4 pm with Dayron Stallings. Patient agreed to call and cancel. 01/04 - placed phone call to patient's therapist Dayron Stallings and left voicemail for return call to discuss case and coordinate care. -please help patient explore volunteer opportunities in the community. - Patient needs a family meeting as soon as possible. Recommend that he not be immediately discharged after meeting due to his perseveration on difficulties communicating with mom when this happened before. - will need to verify when next therapy appointment is scheduled. 01/05 - Suicidal thoughts exacerbated after difficult family meeting. We'll postpone discharge as he does not feel safe to leave the hospital. (2) Anxiety - Trial of escitalopram as above. - Continue buspirone 15 mg 3 times a day. Patient instructed on the importance of taking the medication throughout the day for best effect. - Work on behavioral techniques for managing anxiety. 01/01 - Discussed consideration of adding hydroxyzine PRN for anxiety but patient declines at this time. 01/03 - discussed using hydroxyzine prn for reported anxiety and for difficulty falling asleep. He will consider. (3) Suicidal ideations - Every 15 minute checks for safety. - Encourage group attendance and participation. - Work on discharge safety plan. Involve parents. High risk for suicide due to race, single, sex, unemployed, poor supports, chronic depression/anxiety/ personality disorder, multiple previous suicide attempts and hospitalizations, history of a suicide attempt without telling anyone her seeking treatment, and chronic SI with a specific plan and acts of furtherance on multiple occasions. Would benefit from robust safety plan to include no access to weapons including knives, and involving parents and outpatient providers so all are aware of the plan. 01/04 Patient has agreed to family meeting with parents which has not yet been set up. This will need to be done before patient is discharged. Ideally he would not be discharged immediately after a family meeting as patient has repeatedly talked about how badly this went after a previous inpatient stay. Discharge / Aftercare Planning Primary Care Physician: Name: Dr Escobar Psychiatrist: Name: Dr Marcelino Date of Appointment: Feb 10, 2017 Time of Appointment: 9:00am Therapist: Name: Dayron Stallings LPC Date of Appointment: Jan 03, 2017 Time of Appointment: 4:00pm Manager: Name: None Visit Code E&M Code: 58202 Inventory Assets Strengths: Supportive family, has housing, has outpatient providers Risk Factors Assessment Male: Yes : Yes /single/: Yes Higher / Fall in social status: No Health problems: Yes Mental Health Diagnoses: Yes Substance use disorders: No Previous attempt: Yes Previous attempt; planned: Yes Previous attempt; didn't tell: Yes Family history of suicide: No Previous psychiatric stay: Yes Hopelessness: Yes Smoker: No Protective Factors Assessment Jain beliefs: Yes : No Responsible for young children: No Employed: No Stable relationships: No Supportive family: Yes Good rapport with provider: No Data Vital Signs Last 24 Hrs: Date Time Temp Pulse Resp B/P (MAP) Pulse Ox O2 Delivery O2 Flow Rate FiO2 01/05/17 07:00 36.3 73 16 115/76 80 122/83
[2017-01-05] MEDS: BusPIRone 15 MG TAB PO SCH ×3 (10:48→20:50)
[2017-01-05] MEDS: ESCITALOPRAM OXALATE 20 MG TAB PO SCH (20:50)
[2017-01-06 07:06] VITALS: BP_SYST 125; BP_SYST 144; BP_DIAS 81; PULSE 76; PULSE 91; TEMP 36.4
[2017-01-06] MEDS: BusPIRone 15 MG TAB PO SCH (09:06)
[2017-01-06] MEDS ORDERED: ATR25 PO (10:16)
[2017-01-06] MEDS ORDERED: LXP20 PO (10:16)
--- NOTE | 2017-01-06 10:45 | Discharge Instructions ---
Discharge Information Report Includes Report will include the: Discharge Instructions & Summary Admission Admission Date / Time: Dec 27, 2016 at 20:23 Reason for Admission: Major Depression Recurrent Discharge Discharge Diagnosis / Problem: MDD, recurrent, severe Condition at Discharge: Fair Discharge Goals Goal(s): Decrease discomfort, Improve function, Increase independence, Prevent Disease Progression Activity Recommendations Activity Limitations: resume your previous activity . Instructions / Follow-Up Instructions / Follow-Up . SPECIAL CARE INSTRUCTIONS: 1. Follow through with your scheduled aftercare appointments. If unable to keep an appointment, please call to reschedule. 2. Take your medication only as prescribed. Medication should not be changed or stopped without the approval of your doctor. In the event of worsening symptoms or concerns about side effects, contact your doctor immediately. 3. Utilize new healthy coping skills, anger management skills, and stress management skills learned during your hospitalization. Journal feelings and process them with a support person. Identify stressors or situations that may result in relapse, deterioration or inappropriate behaviors and develop a plan to deal with those issues. 4. If your coping skills are ineffective and you are in crisis, contact your outpatient providers for direction. If unable to reach your providers, please call the CAN HELP LINE AT or go to the closest Emergency Room. 5. Avoid alcohol and un-prescribed drugs. 6. You have been provided with the Mental Health Advance Directives Pamphlet for your review. AFTERCARE APPOINTMENTS: * Please call your insurance company prior to your scheduled appointment to confirm your aftercare providers are covered. Take your insurance information to your appointments. . Discharge / Aftercare Planning Primary Care Physician: Name: Dr Escobar Psychiatrist: Name: Dr Marcelino Date of Appointment: Feb 10, 2017 Time of Appointment: 9:00am Therapist: Name Of Therapist: Dayron Stallings LPC Date of Appointment: Jan 06, 2017 Time of Appointment: 3:00pm Moderate Needs Teacher: Name: None . Follow-Up Care Plan for Follow-Up Care: Patient has an appointment with therapist today at 3 pm. He will then resume his weekly sessions on Tuesdays beginning January 10, [address] Marcelino office to obtain earlier appointment due to hospitalization. Dr. Marcelino has no available appointments in his [place] office patient's scheduled appointment on February 10, 2017. Current Hospital Diet Patient's current hospital diet: Regular Diet Discharge Diet Recommended Diet: Regular Diet Procedures Procedures Performed: No Pending Studies Pending Studies at Discharge: No Medical Emergencies . Who to Call and When: Medical Emergencies: For questions or emergencies related to your hospital stay, please contact the Inpatient Behavioral Health Unit at [phone]. A department clinician is on-call 13/02 for the Behavioral Health Unit for emergencies At any time you feel your situation is an emergency, you may also call 911 immediately. . Non-Emergent Contact Non-Emergency issues call your: Primary Care Provider, Psychiatrist, Therapist Advance Directives Do You Have an Existing Mental: No Existing Living Will: No Existing Power of Box Sealing Machine Operator: No Advance Directives Info Given: To Pt/S.O. Advance Directives Reason: Declines as Mental Health Visit. Discharge Summary Admission HPI Per the Admitting provider: The patient is known to us from 3 hospitalizations on our behavioral health unit in 2011 for depression and anxiety. He had been noncompliant with treatment recommendations, stopped going to psych rehabilitation, and was then dismissed from the [facility] psych clinic. Since that time, he is continued to struggle with his depression, saying it has never remitted, he isolates at home, and has not gotten a job. He has been arguing with his mother about his lack of motivation and initiative. He endorses anhedonia, and states that he has no reason to go on living. Although he has a psychiatrist and therapist, he does not feel they are helpful. He endorses depressed mood, lack of motivation, low energy, decreased appetite with no oral intake in 24 hours, and suicidal thoughts with a plan to cut his neck. He described his suicidal thoughts as constant, and interfering with his ability to function. He has disrupted sleep, sleeping a few hours overnight and off and on during the day, with random times to go to sleep and awaken. He says that yesterday, he met with his therapist, and "I didn't really say anything, he knew there was something wrong." He says he was doing poorly because "my mom started pressuring me too much. She has depression, so I can't really say anything to her, because she's too emotionally unstable." He says when his mother is depressed, he gets more depressed, because she gets angry and "lashes out." He reports chronic SI, "sometimes less and sometimes worse," with increased thoughts recently in the context of "my mom's depression makes me focus more on my depression." He says he thinks he needs to kill himself, thinks he would cut his throat with a knife, and had started carrying around a pocket knife since Monday, with intent to use it to kill himself. On Monday he and his mother had an altercation where his parents told him to trim the hedges, but he thought they asked rudely, so didn't do it, and it caused a fight. He admits he has no schedule, "it's pretty open," saying all he does is sleep. He says he is not comfortable initiating social interaction so isolates at home, does not leave except for appointments and zoroastrianism. He has daily anxiety which is triggered by interactions with parents and other people in general, social situations. He considers himself a worrier, worries about "anything and everything," and it interferes with sleep and focus. He has had a few panic attacks over the past 10 years. He reports good medication compliance, but takes his buspirone all in one dose instead of tid, and says his psychiatrist told him that was okay. He thinks the Seroquel XR was stopped because insurance stopped covering it at some point, and he later started buspirone. He has remained on fluoxetine since 2011, and is not sure when the dose was last increased, but is now on 80mg daily. He usually sees his psychiatrist once a month. Although his records indicate that he developed tinnitus after starting mirtazapine, he states that it has continued even after that medication was stopped, and that he saw an ENT physician and his PCP, who suggested that it might be due to the fluoxetine. He thinks the ringing in his ears started about 2 weeks after he started fluoxetine, and although it is annoying, he states he has gotten used to it. Admission Exam Per the Admitting provider: See H and P Hospital Course (1) Severe recurrent major depression without psychotic features - Chronic severe depression with acute worsening of mood in the context of mother's depression and difficult relationships with family. Discussed options for medication, including a trial of a different augmenting agent, switching to a different SSRI, or a trial of an SNRI such as venlafaxine XR. As there is some concern that fluoxetine is causing tinnitus, he would like to try switching to a different antidepressant. We discussed a trial of escitalopram, reviewed the risks, benefits, and side effects, and provided the patient with and up to date handout about the medication. We will stop fluoxetine which will self taper given its long half-life, and start escitalopram 10 mg daily at bedtime tonight, titrating as tolerated. - We also discussed the importance of increasing his supports and structure at home, engaging in activities outside of the home, and working on his relationship with his parents. He will need a family meeting with them prior to discharge. - Coordinate with outpatient providers. He does not feel he needs case management or psych rehabilitation, but may need a higher level of care, he is not doing well with his current regimen. 12/29 - Continue Lexapro 10 mg no side effects reported. Prozac 80 mg was discontinued last dose 12/28. 12/30 - consider additional Lexapro titration tomorrow as only 2 doses so far. 12/31 - Continues to feel depressed and no side effects from Lexapro. Patient agreeable to increasing dose to 20mg daily. 01/01 - reviewed with patient augment strategy of adding Remeron but he had previously been on this and discontinued because he thought that it was contributing to tinnitus and was ineffective. 01/02 - schedule family meeting with parents. Need to review safety plan, including no access to knives, guns, or other weapons. Would also reviewed recommendations to increase his outpatient supports/treatment, which she has thus far declined. Spoke with Dr. Marcelino regarding patient's case, and he was in support of current med plan, consideration of ECT and recommendations for increased OP supports. Also agreed with axis II component. 01/03 - continue Lexapro 20 mg (has been at this dose for 3 days). Discussed ways to engage socially as patient sees having friends the thing that would make his life better. He is willing to look at volunteer opportunities. He agreed to family meeting with parents during which a review of safety plan will be done as above. Patient scheduled for therapy today at 4 pm with Dayron Stallings. Patient agreed to call and cancel. 01/04 - placed phone call to patient's therapist Dayron Stallings and left voicemail for return call to discuss case and coordinate care. -please help patient explore volunteer opportunities in the community. - Patient needs a family meeting as soon as possible. Recommend that he not be immediately discharged after meeting due to his perseveration on difficulties communicating with mom when this happened before. - will need to verify when next therapy appointment is scheduled. 01/05 - Suicidal thoughts exacerbated after difficult family meeting. We'll postpone discharge as he does not feel safe to leave the hospital. (2) Anxiety - Trial of escitalopram as above. - Continue buspirone 15 mg 3 times a day. Patient instructed on the importance of taking the medication throughout the day for best effect. - Work on behavioral techniques for managing anxiety. 01/01 - Discussed consideration of adding hydroxyzine PRN for anxiety but patient declines at this time. 01/03 - discussed using hydroxyzine prn for reported anxiety and for difficulty falling asleep. He will consider. (3) Suicidal ideations - Every 15 minute checks for safety. - Encourage group attendance and participation. - Work on discharge safety plan. Involve parents. High risk for suicide due to race, single, sex, unemployed, poor supports, chronic depression/anxiety/ personality disorder, multiple previous suicide attempts and hospitalizations, history of a suicide attempt without telling anyone her seeking treatment, and chronic SI with a specific plan and acts of furtherance on multiple occasions. Would benefit from robust safety plan to include no access to weapons including knives, and involving parents and outpatient providers so all are aware of the plan. 01/04 Patient has agreed to family meeting with parents which has not yet been set up. This will need to be done before patient is discharged. Ideally he would not be discharged immediately after a family meeting as patient has repeatedly talked about how badly this went after a previous inpatient stay. Risk Factors Assessment Male: Yes : Yes /single/: Yes Higher / Fall in social status: No Health problems: Yes Mental Health Diagnoses: Yes Substance use disorders: No Previous attempt: Yes Previous attempt; planned: Yes Previous attempt; didn't tell: Yes Family history of suicide: No Previous psychiatric stay: Yes Hopelessness: Yes Smoker: No Protective Factors Assessment Episcopalian beliefs: Yes : No Responsible for young children: No Employed: No Stable relationships: No Supportive family: Yes Good rapport with provider: No Absence of risk factors above: Yes ((risk factors mitigated by admitting paiterrell to hospital, changing his medication to target mood and anxiety, involving him in groups and individual therapy on the unit, coordinating care with his outpatient providers and having a family meeting. Patient has worked on a discharge safety plan. He has an appointment with his therapist today. He has baseline suicidal thoughts that have been present most days for the past 5 years. He denies any intention or plan and is forward thinking looking forward to a family wedding in January and the [employer] Fair in February. He is performing ADLs independently. He feels safe to go home. He is requesting discharge and he is not at acute risk of harm to himself and can be managed as an outpatient at this time. He does not have any history of harming others and does not have risk factors for doing so. ) Day of Discharge Assessment Hospital Course: Patient was initially isolating in his room, lying in bed looking at the ceiling. However after the first 2 days he began participating in groups and interacting with peers. He was for several days refusing a family meeting but then agreed to have one which was held yesterday. During the meeting , the family processed the difficulties of having an adult child living with parents. Patient was upset and isolated in room after the meeting yesterday but in the evening he regrouped and was engaged in groups and talking with peers. He has been able to connect with peers in this structured setting where he feels less "judged." His Buspar was continued and Prozac was discontinue and patient started on Lexapro which was titrated to 20 mg at bedtime. Patient has tolerated this med change without side effects. Day of Discharge Assessment: Patient is talking in an animated manner with another patient when I approached him for his interview this morning. He reports that he is ready for discharge and doesn't feel he has anymore to gain from being here. Patient has chronic suicidal thoughts at baseline. He agrees that he is at baseline and although he is not happy with the way his life is, he does not intend to harm himself or anyone else. He continues to describe his mood as "about the same." He relates that to some degree he has enjoyed his stay here because there are people his own age. He is appropriately dressed and groomed. His gait is steady and he his motor behavior is unremarkable, his mood is "about the same." His affect is brighter and he smiles during the interview with good eye contact." His thoughts are clear and goal oriented without delusions or hallucinations. He denies suicidal intention or plan or thoughts of harming others. His judgement and insight are improved over admission. He is deemed not to be at acute risk of harm to himself or others and so discharge is ordered today by Dr. Nisha Perdomo. Patient will see his therapist today at 3 pm and I called to confirm this appointment. Tried to obtain earlier appointment with Dr. Marcelino however no earlier appointments are available in Dr. Marcelino's [place] office before patient scheduled appointment and patient declined their offer of an appointment at Dr. Marcelino's [place] office. Laboratory Refer to printed laboratory reports Test 12/27/16 18:10 12/27/16 18:17 12/27/16 18:22 Urine Color DK YELLOW Urine Appearance CLEAR Urine pH 6.5 Urine Specific Whittaker 1.030 Urine Protein NEG Urine Glucose (UA) NEG Urine Ketones TRACE Urine Occult Blood NEG Urine Nitrite NEG Urine Bilirubin NEG Urine Urobilinogen NEG Urine Leukocyte Esterase TRACE Urine WBC (Auto) 1-5 Urine RBC (Auto) 0-4 Urine Hyaline Casts (Auto) 5-10 Urine Epithelial Cells (Auto) 20-30 Urine Bacteria (Auto) NEG Urine Opiates Screen NEG Urine Methadone, Qualitative NEG Urine Barbiturates NEG Urine Phencyclidine (PCP) Level NEG Ur Amphetamine/Methamphetamine NEG MDMA (Ecstasy) Screen NEG Urine Benzodiazepines Screen NEG Urine Cocaine Metabolite NEG Urine Marijuana (THC) NEG POC Glucose 83 White Blood Count 12.68 Red Blood Count 6.22 Hemoglobin 17.3 Hematocrit 52.2 Mean Corpuscular Volume 83.9 Mean Corpuscular Hemoglobin 27.8 Mean Corpuscular Hemoglobin Concent 33.1 Platelet Count 241 Mean Platelet Volume 9.6 Neutrophils (%) (Auto) 79.4 Lymphocytes (%) (Auto) 11.4 Monocytes (%) (Auto) 7.3 Eosinophils (%) (Auto) 0.8 Basophils (%) (Auto) 0.2 Neutrophils # (Auto) 10.08 Lymphocytes # (Auto) 1.44 Monocytes # (Auto) 0.92 Eosinophils # (Auto) 0.10 Basophils # (Auto) 0.03 RDW Standard Deviation 38.5 RDW Coefficient of Variation 12.8 Immature Granulocyte % (Auto) 0.9 Immature Granulocyte # (Auto) 0.11 Sodium Level 142 Potassium Level 3.8 Chloride Level 106 Carbon Dioxide Level 25 Anion Gap 11.0 Blood Urea Nitrogen 13 Creatinine 1.20 Est Creatinine Clear Calc Drug Dose 94.6 Estimated GFR () 94.8 Estimated GFR (Non- 81.8 BUN/Creatinine Ratio 11.1 Random Glucose 80 Calcium Level 9.2 Total Bilirubin 1.4 Direct Bilirubin 0.2 Aspartate Amino Transferase (AST) 32 Alanine Aminotransferase (ALT) 58 Alkaline Phosphatase 123 Total Protein 8.4 Albumin 4.4 Thyroid Stimulating Hormone (TSH) 1.040 Ethyl Alcohol mg/dL < 3.0 Total Time Total Time Spent (min): Greater than 30 minutes Total Time Included: examination of the patient, discharge planning, medication reconciliation, communication with other providers Tobacco Cessation at Discharge Smoking Status: Never Smoker FDA approved Prescription: non-smoker
== END 2017-01-06 12:39 | disposition home or self-care (01) | DRG 885 ==
LOC: C.EDB 17:51 → C.MHU 20:23 → ENRESERV 20:45
PROVIDERS: ADMIT Psychiatry & Neurology Psychiatry; ATTEND Psychiatry & Neurology Psychiatry
DX: F33.2 Major depressive disorder, recurrent severe without psychotic features (principal); R45.851 Suicidal ideations; F41.1 Generalized anxiety disorder; G60.0 Hereditary motor and sensory neuropathy; F60.9 Personality disorder, unspecified; Z63.9 Problem related to primary support group, unspecified; Z91.19 Patient's noncompliance with other medical treatment and regimen; Z79.899 Other long term (current) drug therapy